=== PATIENT | female | born 1955 | race Caucasian/White ===

== ENCOUNTER 2017-10-19 20:43 | Emergency (ER) | payer MEDICARE ==
[2017-10-19] MEDS ORDERED: LIDOCAINE 1% PF 2 ML VIAL. (21:12)
[2017-10-19 21:16] LABS: ADD MAN DIFF? NO
[2017-10-19 21:18] LABS: BASO # 0.1 x10^3/uL (0.0-0.2); BASO % 1 % (0-3); EOS # 0.1 x10^3/uL (0.0-0.7); EOS % 2 % (0-3); HEMATOCRIT 37.7 % (36.0-47.0); HEMOGLOBIN 13.1 g/dL (12.0-15.5); LYMPH # 0.9 x10^3/uL (1.0-4.8); LYMPH % 15 % (24-48); MEAN CORPUSCULAR HEMOGLOBIN 30 pg (25-35); MEAN CORPUSCULAR HGB CONC 35 g/dL (31-37); MEAN CORPUSCULAR VOLUME 85 fL (79-100); MONO # 0.4 x10^3/uL (0.0-1.1); MONO % 8 % (0-9); NEUT # 4.4 x10^3uL (1.8-7.7); NEUT % 75 % (31-73); PLATELET COUNT 168 x10^3/uL (140-400); RED BLOOD COUNT 4.43 x10^6/uL (3.50-5.40); RED CELL DISTRIBUTION WIDTH 13.2 % (11.5-14.5); WHITE BLOOD COUNT 5.8 x10^3/uL (4.0-11.0)
[2017-10-19 21:27] LABS: ANION GAP 9 (6-14); BLOOD UREA NITROGEN 17 mg/dL (7-20); BUN/CREATININE RATIO 21 (6-20); CALCIUM 8.8 mg/dL (8.5-10.1); CARBON DIOXIDE 28 mmol/L (21-32); CHLORIDE 105 mmol/L (98-107); CREATININE 0.8 mg/dL (0.6-1.0); GFR 72.2; GLUCOSE 123 mg/dL (70-99); POTASSIUM 3.8 mmol/L (3.5-5.1); PROTHROMBIN TIME PATIENT 12.7 SEC (11.7-14.0); SODIUM 142 mmol/L (136-145)
[2017-10-19 21:33] LABS: ALBUMIN 3.6 g/dL (3.4-5.0); ALBUMIN/GLOBULIN RATIO 1.1 (1.0-1.7); ALK PHOS 69 U/L (46-116); ALT (SGPT) 18 U/L (14-59); AST (SGOT) 19 U/L (15-37); TOTAL BILIRUBIN 0.4 mg/dL (0.2-1.0); TOTAL PROTEIN 6.9 g/dL (6.4-8.2)
[2017-10-19 22:02] LABS: CSF GLUCOSE 63 mg/dL (37-70)
[2017-10-19 22:02] LABS: CSF PROTEIN 24.2 mg/dL (15.0-45.0)
[2017-10-19 22:14] LABS: CSF CLARITY CLEAR; CSF COLOR COLORLESS; CSF RBC COUNT 0; CSF WBC COUNT 2
[2017-10-19 22:38] LABS: TROPONINI < 0.017 ng/mL (0.000-0.055)
[2017-10-20 00:49] LABS: TROPONINI < 0.017 ng/mL (0.000-0.055)
== END 2017-10-20 02:19 | disposition home or self-care (01) ==
LOC: ER 10-20 02:19
DX: K59.00 Constipation, unspecified (principal); R42 Dizziness and giddiness; G89.29 Other chronic pain; M06.9 Rheumatoid arthritis, unspecified
CPT/HCPCS: 36415; 70450; 80053; 82945; 84157; 84484; 85025; 85610; 89051; 93005; 99285-25